=== PATIENT | female | born 1950 | race Caucasian/White ===

== ENCOUNTER 2016-06-26 10:52 | Inpatient (IN) | payer OTHER ==
--- NOTE | 2016-06-04 11:17 | PAT Medication Instructions ---
Service Date Jun 04, 2016. Current Home Medication List Hydrocodon/Acetaminophen 5MG/300MG (Vicodin (5MG/300MG)), Unknown Dose PO Q6H PRN for HEADACHE Medication Instructions For Your Scheduled Surgery - Take the following medications the morning of surgery with a sip of water OTHERWISE NOTHING TO EAT OR DRINK AFTER MIDNIGHT: Hydrocodon/Acetaminophen 5MG/300MG (Vicodin (5MG/300MG)), Unknown Dose PO Q6H PRN for HEADACHE (may take if needed up to 4 hours prior to surgery if needed) If you have any questions please call us at [phone] or [phone] or [phone]
[2016-06-04 11:49] LABS: BASO % 0.6 %; BASO ABS # 0.04 K/uL (0-0.2); COMPLETE YES; EOS % 0.7 %; HEMATOCRIT 38.6 % (37-47); LYMPH % 21.6 %; LYMPH ABS # 1.45 K/uL (1.2-3.4); MEAN CELL VOLUME 88.1 fL (80-100); MEAN CORPUSCULAR HEMOGLOBIN 30.1 pg (25-34); MEAN CORPUSCULAR HGB CONC 34.2 g/dl (32-36); MONO % 7.2 %; NEUT % 68.9 %; PLATELET COUNT 332 K/uL (130-400); RED BLOOD COUNT 4.38 M/uL (4.2-5.4); WHITE BLOOD COUNT 6.71 K/uL (4.8-10.8)
--- NOTE | 2016-06-04 11:53 | DIAGNOSTIC IMAGING REPORT ---
CHEST PREADMISSION(PA/LAT) CLINICAL HISTORY: PAT preoperative evaluation COMPARISON STUDY: No previous studies for comparison. FINDINGS: The bones soft tissues and hemidiaphragms are normal. The cardiomediastinal silhouette is normal. The lungs are clear. The pulmonary vasculature is normal. IMPRESSION: Negative chest. Electronically signed by: Woo Casillas M.D. 06/04/2016 11:51 AM Dictated Date/Time: 06/04/2016 11:51 AM
[2016-06-04 12:00] LABS: URINE APPEARANCE CLEAR (CLEAR); URINE BILIRUBIN NEG (NEG); URINE COLOR YELLOW; URINE NITRITE NEG (NEG); URINE SPECIFIC GRAVITY 1.008 (1.000-1.030); UROBILINOGEN NEG (NEG)
[2016-06-04 12:06] LABS: BUN/CREATININE RATIO 14.6 (10-20); CALCIUM 9.5 mg/dl (8.5-10.1); CREATININE 0.81 mg/dl (0.60-1.20); POTASSIUM 4.2 mmol/L (3.5-5.1)
[2016-06-04 12:16] LABS: MANUAL MICROSCOPIC REQUIRED? NO; REVIEW REQ? NO
[2016-06-04 13:10] LABS: ESTIMATED AVERAGE GLUCOSE 117 mg/dl; HA1C FLAG Normal (Normal)
--- NOTE | 2016-06-25 12:21 | HISTORY & PHYSICAL EXAMINATION ---
DATE OF ADMISSION: 06/26/2016 CHIEF COMPLAINT: Left knee pain. HISTORY OF PRESENT ILLNESS: The patient is a 66-year-old female with known osteoarthritis about her bilateral knees, left worse than right. She has an old history of a femoral fracture and femoral malunion. She has severe degenerative changes on x-ray. She has severe pain and disability with activities of daily living and now desires to proceed with left total knee arthroplasty. PAST MEDICAL HISTORY: Denies. PAST SURGICAL HISTORY: None. MEDICATIONS: None. ALLERGIES: No known drug allergies. SOCIAL HISTORY AND REVIEW OF SYSTEMS: Noncontributory. PHYSICAL EXAMINATION: GENERAL: Well-nourished, well-developed female who appears her stated age. HEENT: Normocephalic, atraumatic, extraocular movements intact, oropharynx pink and moist. NECK: Supple without adenopathy. LUNGS: Clear to auscultation bilaterally. HEART: Regular rate and rhythm. ABDOMEN: Soft, nontender, nondistended. EXTREMITIES: The upper extremity is within normal limits. The left knee has varus alignment. She complains primarily of medial compartment pain. X-RAYS: X-rays were reviewed. She has gawk-dw-towl arthritis of the medial compartment with complete loss of the joint space. There are large medial osteophytes. On the lateral view, there is obvious deformity and malunion of the distal femoral shaft. There is moderate degenerative change about the patellofemoral joint as well. ASSESSMENT: Left knee degenerative joint disease. PLAN: Risks versus benefits were discussed, consent was obtained. Due to her femoral malunion, we will request the [employer] for her distal femoral alignment. Will proceed with left total knee arthroplasty as indicated.
[~2016-06-26] VITALS: Ht 152.4 cm; Wt 48.2 kg
[2016-06-26] VITALS (7 sets, daily range): BP systolic 117–152; BP diastolic 62–89; PULSE 63–82; TEMP 36.3–36.7; O2SAT 96–98; Ht 152.4 cm; Wt 48.2 kg
[~2016-06-26 10:52] MED LIST: ACETAMINOPHEN 500 MG TAB PO SCH; BUPIVACAINE 0.5 % 5 MG/1 ML PF 10ML VIAL ONE; CEFAZOLIN 2000 MG/60 ML D5W 60 ML IV SCH; CeleBREX 200 MG CAP PO SCH; DEXAMETHASONE 4 MG TAB PO SCH; GABAPENTIN 300 MG CAP PO SCH; HYDR-3419 PO; LACTATED RINGER'S 1000ML 1,000 ML IV SCH; LACTATED RINGER'S 1000ML 500 ML IV ONE; LACTATED RINGER'S 1000ML IV SCH; LACTATED RINGER'S 500 ML IV SCH; METOCLOPRAMIDE HCL 10 MG TAB PO SCH; MISSING PHYSICIAN SIGNATURE ON ORDER SCH; ROPIVACAINE 5MG/ML 30 ML 100 MG, METHYLPREDNISOLONE IV 40 MG, MoRPHine SULFATE 4 MG, Ep... INFIL SCH; ROPIVACAINE 5MG/ML 30 ML 150 MG, BUPIVACAINE/EPINEPHR 0.5% MPF 30 ML, KETOROLAC TROMETH... INFIL SCH
--- NOTE | 2016-06-26 10:59 | History & Physical Bridge Note ---
H&P Re-Evaluation Bridge Note: I have examined the patient, reviewed the History & Physical and in the interval since the performance of the History & Physical I have noted the following changes of clinical significance: No changes noted
[2016-06-26] MEDS ORDERED: ONDANSETRON INJ 2 MG/ML 2 ML VIAL IV PRN ×2 (11:15→15:45)
[2016-06-26] MEDS ORDERED: FENTANYL CITRATE INJ 50 MCG/1 ML 2 ML VIAL IV PRN (11:15)
[2016-06-26] MEDS ORDERED: ATROPINE SULFATE 0.1 MG/ML 5ML SYR IV PRN (11:15)
[2016-06-26] MEDS ORDERED: EpHEDrine SULFATE INJ 50 MG/ML AMP IV PRN (11:15)
[2016-06-26] MEDS ORDERED: PROPOFOL IV EMULSION 10 MG/ML 20 ML VIAL IV ONE (12:12)
[2016-06-26] MEDS ORDERED: LIDOCAINE HCL 2% 2 ML VIAL (20MG/ML) ONE (12:12)
[2016-06-26] MEDS ORDERED: DEXAMETHASONE SOD INJ 4 MG/ML VIAL ONE (12:12)
[2016-06-26] MEDS ORDERED: FENTANYL CITRATE INJ 50 MCG/1 ML 2 ML VIAL ONE (12:12)
[2016-06-26] MEDS ORDERED: ONDANSETRON INJ 2 MG/ML 2 ML VIAL ONE (12:12)
[2016-06-26] MEDS ORDERED: MIDAZOLAM HCL 1 MG/ML 2ML VIAL ONE (12:12)
[2016-06-26] MEDS ORDERED: ORTHO JOINT ANESTHETIC ONE (13:26)
[2016-06-26] MEDS ORDERED: POVIDONE-IODINE OP SOLN 30 ML BTL ONE (13:26)
[2016-06-26] MEDS ORDERED: BACITRACIN 50000 UNIT VIAL ONE (13:26)
--- NOTE | 2016-06-26 15:35 | OPERATIVE REPORT ---
DATE OF OPERATION: 06/26/2016 ADDENDUM This procedure was made exceptionally difficulty both because of the previous femoral fracture and the unusual wear pattern of the patient's femur. I attest to the content of the Intraoperative Record and any orders documented therein. Any exceptions are noted below. ABEBED
[2016-06-26] MEDS ORDERED: MoRPHine SULFATE 2 MG/ML CARP IV PRN ×3 (15:45→16:15)
[2016-06-26] MEDS ORDERED: OXYCODONE HCL IR 5 MG TAB (IMMEDIATE RELEASE) PO PRN (15:45)
[2016-06-26] MEDS ORDERED: METOCLOPRAMIDE HCL INJ 5 MG/ML 2 ML VIAL IV PRN (15:45)
[2016-06-26] MEDS ORDERED: ZOLPIDEM TARTRATE 5 MG TAB PO PRN (15:45)
[2016-06-26] MEDS ORDERED: ALUMINUM/MAGNESIUM/SIMETH (MAALOX MAX) 30 ML UDC PO PRN (15:45)
[2016-06-26] MEDS ORDERED: MAGNESIUM HYDROXIDE SUSP 30 ML UDC PO PRN (15:45)
--- NOTE | 2016-06-26 16:07 | DIAGNOSTIC IMAGING REPORT ---
LEFT KNEE 1 OR 2 VIEWS ROUTINE CLINICAL HISTORY: Left knee degenerative joint disease. Arthroplasty. COMPARISON: None FINDINGS: Alignment of the total left knee arthroplasty is anatomic. There is no fracture or unexpected radiopaque foreign body. A healed fracture of the mid to distal shaft of the left femur is partially imaged. IMPRESSION: Expected findings following total left knee arthroplasty. Electronically signed by: Ky Faith M.D. 06/26/2016 4:06 PM Dictated Date/Time: 06/26/2016 4:05 PM
[2016-06-26] MEDS ORDERED: MoRPHine SULFATE 4 MG/ML 1 ML CARP\\VIAL IV PRN ×2 (16:15)
[2016-06-26] MEDS ORDERED: MoRPHine SULFATE 10 MG/ML CARP/VIAL IV PRN ×2 (16:15)
--- NOTE | 2016-06-26 16:19 | Anesthesiology Progress Note ---
Anesthesia Post Op Note Date & Time Jun 26, 2016 at 16:20 Vital Signs Pain Intensity: 0 Vital Signs Past 12 Hours Date Time Temp Pulse Resp B/P Pulse Ox O2 Delivery O2 Flow Rate FiO2 06/26/16 16:10 70 12 121/73 100 Nasal Cannula 2 06/26/16 16:00 65 12 123/76 99 Nasal Cannula 2 06/26/16 15:50 62 12 100/73 100 Mask 10 06/26/16 15:41 36.5 72 12 118/75 96 Mask 10 06/26/16 11:15 36.7 77 18 152/89 98 Room Air Notes Mental Status: alert / awake / arousable, participated in evaluation Pt Amnestic to Procedure: Yes Nausea / Vomiting: adequately controlled Pain: adequately controlled Airway Patency, RR, SpO2: stable & adequate BP & HR: stable & adequate Hydration State: stable & adequate Anesthetic Complications: no major complications apparent
--- NOTE | 2016-06-26 17:20 | OPERATIVE REPORT ---
DATE OF OPERATION: 06/26/2016 PREOPERATIVE DIAGNOSIS: Osteoarthritis left knee with malunited femoral shaft fracture. POSTOPERATIVE DIAGNOSIS: Osteoarthritis left knee with malunited femoral shaft fracture. PROCEDURE: OrthAlign navigation left total knee. SURGEON: Gurmeet Alva MD EMBOSSING MACHINE OPERATOR HELPER: Tavo Corey PA-C ANESTHESIA: Spinal. COMPLICATIONS: None. DESCRIPTION OF PROCEDURE: Following induction of adequate spinal anesthesia, the patient's left leg was prepped and draped in usual sterile manner. The limb was exsanguinated with an Esmarch bandage and tourniquet was inflated to 300 mmHg. A longitudinal incision was made. Subcutaneous tissue was sharply dissected. Electrocautery was used for hemostasis. Median parapatellar incision was made and the patella was then everted and the knee was flexed. Severe wear and eburnation of the medial femoral condyle was noted. First, the dorsal line alignment guide was used to place the proximal tibial cutting guide. This cut was made and the bone fragment was removed. Next, attention was turned to the distal femur where a pin was placed anterior to the intercondylar notch. This was used to place the OrthAlign navigation guide and once it was calibrated successfully, the distal femoral cut was made. Severe wear of the medial condyle was noted. The OrthAlign guide was removed and the tibia was sized, slight elevation of the posterior paddle on the medial femoral condyle to make up for some of the loss bone was utilized and the #3 distal femoral guide was placed into position. The femoral cuts were made, the notch was prepared, and meniscal remnants were removed. Attention was turned to the tibia once again where the tibia was repaired using a size 2 tibial base plate. A trial reduction was carried out and was found to be significant excess external rotation of the femoral component, the knee was stable in extension but was tight laterally in flexion, and far too lax medially in flexion. After careful inspection of the epicondylar axis, it appeared that the internal rotation that I dialed in to make up for posterior condyle, medial femoral condyle, and bone loss was not adequate. Using epicondylar axis, the femoral component appeared to be a few degrees externally rotated. The only option available at that point will be to downsize the tibia to a size 2 and recut in external rotation. This was performed. The trial 2 femoral component was placed and TS tibial poly trial was placed and this completely eliminated the previous flexion gap medially that was noted with the previously placed component. The decision was made to place pegs on the femur and a 50 mm intramedullary didi on the tibia for increased stability. Because of slightly increased constraint of the TS, polyethylene was chosen and sized to be used. All trial components were removed after preparation of the patella and tracking of the patella and the joint mix was injected posteriorly and pericapsularly. The knee was thoroughly irrigated with pulsatile irrigation. The final components were assembled and bone ends were dried and the femoral component was impacted into position. A blunt Sharon was used to bring the tibia into view and the tibia was cemented into position and 11 mm TS poly was placed. The reinforcing pin was placed in the tibial post. The knee was located and was again found to be stable and the patella was cemented into position. All excess cement was removed. The knee was thoroughly irrigated once again. A Hemovac drain was placed and a sterile dressing of Adaptic, 4 x 4s, sterile Webril and double length Rommel was applied. The patient tolerated the procedure well. I attest to the content of the Intraoperative Record and any orders documented therein. Any exceptio ns are noted below.
[2016-06-26] MEDS: KETOROLAC TROMETHAMINE 15 MG/ML VIAL IV. SCH (19:33)
[2016-06-26] MEDS ORDERED: PNEUMOCOCCAL POLYSACCHARIDES 25 MCG/0.5 ML VIAL/SYR IM. ONE (19:45)
[2016-06-26] MEDS ORDERED: PNEUMOCOCCAL ADMINISTRATION CHARGE ONE (19:45)
[2016-06-26] MEDS: D5W AND 1/2NSS + 20MEQ KCL 1,000 ML IV SCH (20:16)
[2016-06-26] MEDS: ASPIRIN 81 MG ECTAB PO SCH (20:18)
[2016-06-26] MEDS: DOCUSATE SODIUM 100 MG CAP PO SCH (20:18)
[2016-06-26] MEDS: CEFAZOLIN IV 1,000 MG in DEXTROSE 5% 50ML 50 ML IV SCH (21:38)
[2016-06-26] MEDS: ACETAMINOPHEN 500 MG TAB PO SCH (21:39)
[2016-06-27] VITALS (7 sets, daily range): BP systolic 101–169; BP diastolic 52–75; PULSE 62–94; TEMP 36.3–36.6; O2SAT 95–97
[2016-06-27] MEDS: KETOROLAC TROMETHAMINE 15 MG/ML VIAL IV. SCH ×3 (01:45→13:55)
[2016-06-27] MEDS: CEFAZOLIN IV 1,000 MG in DEXTROSE 5% 50ML 50 ML IV SCH (05:36)
[2016-06-27] MEDS: D5W AND 1/2NSS + 20MEQ KCL 1,000 ML IV SCH ×2 (05:36→15:00)
[2016-06-27] MEDS: ACETAMINOPHEN 500 MG TAB PO SCH ×3 (05:37→20:04)
[2016-06-27 07:29] LABS: MEAN CORPUSCULAR HEMOGLOBIN 28.9 pg (25-34); MEAN CORPUSCULAR HGB CONC 32.8 g/dl (32-36); MEAN PLATELET VOLUME 9.7 fL (7.4-10.4); PLATELET COUNT 193 K/uL (130-400); RED BLOOD COUNT 2.84 M/uL (4.2-5.4)
[2016-06-27] MEDS ORDERED: DEXAMETHASONE INJ 10 MG in SYRINGE 0 ML IV SCH (07:30)
--- NOTE | 2016-06-27 07:43 | Orthopedic Progress Note ---
Orthopedic Progress Note Date of Service Jun 27, 2016. Subjective Post OP Day: 1 Reports: complaints ("I can't move my foot"), Denies: SOB, calf pain, chest pain , light headedness, nausea / vomiting Additional Notes: Pt states that she is unable to move her foot this AM. "The leg feels numb". No other complaints at this time. Objective calves soft nontender, capillary refill less than 2 sec., dressing C/D/I, A&O x3 Unable to dorsi/plantar flex the foot at this time. Able to wiggle her toes slightly. Thigh has good sensation. Sensation decreased at the distal femur down to the foot. Date Time Temp Pulse Resp B/P Pulse Ox O2 Delivery O2 Flow Rate FiO2 06/27/16 03:51 36.5 71 16 101/52 96 Room Air 06/27/16 00:05 36.6 73 16 122/60 95 Room Air 06/27/16 00:00 Room Air 06/26/16 20:15 96 Room Air 06/26/16 20:08 36.3 73 18 137/76 98 Nasal Cannula 2.0 06/26/16 18:45 36.3 63 18 117/72 98 Nasal Cannula 2.0 06/26/16 17:45 36.5 82 16 127/62 98 Nasal Cannula 2.0 06/26/16 17:15 36.5 75 18 122/70 97 Nasal Cannula 06/26/16 16:45 98 Nasal Cannula 2.0 06/26/16 16:45 36.5 82 16 127/62 98 Nasal Cannula 2.0 06/26/16 16:45 98 Nasal Cannula 2.0 06/26/16 16:20 37.4 75 12 125/67 97 Nasal Cannula 2 06/26/16 16:10 70 12 121/73 100 Nasal Cannula 2 06/26/16 16:00 65 12 123/76 99 Nasal Cannula 2 06/26/16 15:50 62 12 100/73 100 Mask 10 06/26/16 15:41 36.5 72 12 118/75 96 Mask 10 06/26/16 11:15 36.7 77 18 152/89 98 Room Air Laboratory Results 24 Hours: Test 06/27/16 07:03 Assessment & Plan Assessment: POD 1 s/p Left TKA with foot drop. Labs pending Plan: PT/OT Planning on home tomorrow Follow foot drop for now. Likely due to intraoperative injection. Inhouse Planning Pain Management: Celebrex, Morphine, PO Tylenol, Oxy IR DVT Prophylaxis: TEDs, SCDs, ASA Discharge Planning Discharge Planning: home with oppt
[2016-06-27 08:10] LABS: BUN/CREATININE RATIO 21.3 (10-20); CREATININE 0.95 mg/dl (0.60-1.20); POTASSIUM 4.5 mmol/L (3.5-5.1)
[2016-06-27] MEDS: ASPIRIN 81 MG ECTAB PO SCH ×2 (08:57→20:03)
[2016-06-27] MEDS: DOCUSATE SODIUM 100 MG CAP PO SCH ×2 (08:58→20:03)
[2016-06-27] MEDS: MULTIVITAMIN TAB PO SCH (08:58)
[2016-06-27] MEDS: PANTOprazole SOD 40 MG TAB PO SCH (08:58)
[2016-06-27] MEDS: FERROUS GLUCONATE 324 MG TAB PO SCH ×3 (08:59→18:41)
[2016-06-27] MEDS ORDERED: CeleBREX 200 MG CAP PO SCH (21:00)
[2016-06-28 00:14] VITALS: BP 148/77; PULSE 77; TEMP 36.8; O2SAT 97
[2016-06-28] MEDS: ACETAMINOPHEN 500 MG TAB PO SCH (06:10)
[2016-06-28] MEDS: PANTOprazole SOD 40 MG TAB PO SCH (07:43)
[2016-06-28] MEDS: DOCUSATE SODIUM 100 MG CAP PO SCH (07:43)
[2016-06-28] MEDS: ASPIRIN 81 MG ECTAB PO SCH (07:43)
[2016-06-28] MEDS: MULTIVITAMIN TAB PO SCH (07:43)
[2016-06-28] MEDS: FERROUS GLUCONATE 324 MG TAB PO SCH (07:43)
[2016-06-28 07:51] VITALS: BP 112/62; PULSE 66; TEMP 36.6; O2SAT 95
--- NOTE | 2016-06-28 09:17 | Orthopedic Progress Note ---
Orthopedic Progress Note Date of Service Jun 28, 2016. Subjective Post OP Day: 2 Reports: feeling well, pain controlled w PO medications, Denies: SOB, calf pain , chest pain, complaints, light headedness, nausea / vomiting Objective calves soft nontender, N/V intact, capillary refill less than 2 sec., dressing C /D/I (silverlon intact), A&O x3, toes mobile foot drop improved Date Time Temp Pulse Resp B/P Pulse Ox O2 Delivery O2 Flow Rate FiO2 06/28/16 07:51 36.6 66 18 112/62 95 Room Air 06/28/16 01:20 Room Air 06/28/16 00:14 36.8 77 18 148/77 97 Room Air 06/27/16 16:00 97 Room Air 06/27/16 15:02 36.3 94 18 169/75 97 Room Air 06/27/16 11:38 36.5 72 17 102/70 95 Room Air Assessment & Plan Assessment: POD 2 s/p Left TKA with foot drop, has resolved. Plan: PT/OT foot drop improved will check w/ SS for poss rehab today. stable to transfer if improved Discharge Planning Discharge Planning: rehab hospital
[2016-06-28] MEDS ORDERED: ACET-1138 PO (09:20)
[2016-06-28] MEDS ORDERED: RXC5 PO (09:20)
[2016-06-28] MEDS ORDERED: CLB200 PO (09:20)
[2016-06-28] MEDS ORDERED: ONDA8TAB6 PO (09:20)
[2016-06-28] MEDS ORDERED: ASPEC81 PO (09:20)
--- NOTE | 2016-06-28 09:23 | Discharge Instructions ---
Discharge Instructions Admission Reason for Admission: Left Knee Degenerative Joint Disease Discharge Discharge Diagnosis / Problem: s/p Left TKA Discharge Goals Goal(s): Decrease discomfort, Improve function, Increase independence Activity Recommendations Activity Level: Up Ad Ayah Therapies: Physical Therapy (TKA protocol) Weightbearing Status: Left weightbearing (as tolerated) . Additional Information Patient informed of condition: Yes Advance Directives: No DNR: No Level of Care: Acute Rehab Communicable Disease: No Prognosis: Stable [place] Catheter: No Instructions / Follow-Up Instructions / Follow-Up ACTIVITY RECOMMENDATIONS: SELF CARE INSTRUCTIONS AFTER TOTAL KNEE REPLACEMENT A. You may need to continue a physical therapy program after discharge from the hospital. There are several options available to you. Your doctor will assist you in selecting the best one for you. 1. An out-patient facility 2 to 3 times a week for therapy or home therapy. 2. Continue working on all exercises taught to you in the hospital. Your goals should be to increase bending of your knee to 90 degrees and beyond and to fully straighten your knee. B. You may progress at your own pace from walking with a walker or crutches to a cane; then to no assistive devices. C. Make walking a part of your daily routine. Be up as much as comfortable with rest periods throughout the day. Rest with leg elevation is very important. Use the ice wrap frequently for the first 3-4 weeks. D. There are no restrictions on activities. You may ride in a car, shop, participate in plant electrical engineer and all social activities. E. Wear the long elastic stockings (JOSE JUAN hose) 20 hours a day for 2 weeks after surgery. They can be removed several times a day for laundering and for a bath. F. You may shower, no tub baths until cleared by your doctor. SPECIAL CARE INSTRUCTIONS: VERY IMPORTANT TO READ AND REVIEW A. There are a few signs you need to watch for after you are home. Call [facility] if you notice any of the followin. Increased severe knee pain. Some pain is expected especially when you exercise. 2. Increased swelling in your leg or knee; pain or swelling of the calf muscle in either lower leg. 3. Any fluid drainage from the incision. 4. Shortness of breath or chest pain. B. Please call [facility] at if you have any concerns or questions about your operation or recovery. The doctor or his nurse will return your call promptly. C. You must take antibiotics before dental work, bladder, bowel or other surgery. Your doctor will provide you with a permanent care to carry describing this precaution. IMPORTANT: * REMEMBER TO TAKE ASPIRIN, 81 MG, TWICE DAILY FOR 4 WEEKS UNLESS OTHERWISE DIRECTED. THIS IS YOUR BLOOD THINNER. * HIGH RISK PATIENTS MAY BE PRESCRIBED A STRONGER BLOOD THINNER. THIS WILL BE PROVIDED AT DISCHARGE. * CALL IF INCREASED PAIN, REDNESS, DRAINAGE OR FEVER GREATER THAT 101. * WEAR JOSE JUAN HOSE 20 HOURS PER DAY FOR 2 WEEKS. * YOU MAY HAVE A LARGE BAND-AID LIKE DRESSING (SILVERON). THIS WILL REMAIN ON YOUR INCISION FOR 7 DAYS, THEN CAN BE REMOVED. IF INCISION IS LEAKING THROUGH DRESSING, CALL THE OFFICE . FOLLOW UP VISIT: If appointment is not already scheduled: Please call [facility] to make a follow-up appointment for 2 weeks after your surgery at . Current Hospital Diet Patient's current hospital diet: Regular Diet Discharge Diet Recommended Diet: Regular Diet Procedures Procedures Performed: Left Total Knee Arthroplasty, Computer Navigation Pending Studies Studies pending at discharge: no Physician Orders On Transfer Dressing Changes: Silverlon- This is a large adhesive bandage that contains silver ions. This helps your incision heal by fighting off bacteria and protecting it from the outside environment. You are permitted to shower with this dressing. This will remain on your incision for 7 days and then should be removed. Some visible blood or drainage through the dressing window is normal. If there is significant drainage or leaking noted before the 7 days notify your doctor's office immediately. Once removed, keep incision clean and dry. If there is any drainage or redness noted, please call your surgeon. Laboratory Results Hemoglobin A1c Test 06/04/16 11:23 Range/Units Estimated Average Glucose 117 mg/dl Hemoglobin A1c 5.7 H 4.5-5.6 % Medical Emergencies . Who to Call and When: Medical Emergencies: If at any time you feel your situation is an emergency, please call 911 immediately. . Non-Emergent Contact Non-Emergency issues call your: Primary Care Provider, Surgeon . . "Provider Documentation" section prepared by Woo Krause. Core Measure Problem Core Measures: None [place] Drug Monitoring Program Search Results: patient reviewed within database, no issues identified
[2016-06-28 09:27] VITALS: O2SAT 95
[2016-06-28 10:42] VITALS: BP 112/62; PULSE 66; TEMP 36.6; O2SAT 95
[2016-06-28 12:11] VITALS: BP 132/68; PULSE 80; TEMP 36.8; O2SAT 97
--- NOTE | 2016-07-04 10:43 | EDITING REQUIRED CODING QUERY ---
SUPPORTING DIAGNOSIS NEEDED A supporting diagnosis is required for the test/procedure performed on this patient in order for us to be reimbursed by ([employer]). Please provide a supporting diagnosis for the following tests listed below next to the test name along with your signature. *If there is no additional diagnosis for this patient that would support the following test/procedure please document that below next to the test/procedure. Tests that require a supporting diagnosis: DOS 06/04/16 * Hba1c DIAGNOSIS: * PTINR DIAGNOSIS: * Urine Culture DIAGNOSIS: Providers Signature: Thank you Pamela Harrison
--- NOTE | 2016-07-09 13:34 | DISCHARGE SUMMARY ---
CHIEF COMPLAINT: Left knee pain. Please see complete history and physical examination. HOSPITAL COURSE: The patient underwent left total knee arthroplasty without complication. She tolerated the procedure well and was discharged to recovery room in stable condition. Her postoperative course was relatively uneventful. Her postoperative pain was reasonably well controlled with a combination of spinal anesthesia, adductor canal block, intraoperative joint injection, IV, and oral pain medications. She was started on aspirin for DVT prophylaxis. She also utilized JOSE JUAN stockings and SCDs for additional prophylaxis. Her H\T\H was stable and did not require transfusion. Her surgical drain was discontinued by postoperative day 2. Her surgical dressing will remain in place for approximately 7 days postoperative. She did have mild postoperative foot drop on postoperative day 1, which was attributed to the intraoperative joint injection. This was substantially improved and resolved by postoperative day 2. She tolerated postop physical therapy reasonably well where she was bending her knee and ambulating appropriately. She was discharged to [facility] on postoperative day 2. She will continue her physical therapy there. She will continue her aspirin for DVT prophylaxis and follow up in our office in approximately 10-14 days for initial postop evaluation.
== END 2016-06-28 12:42 | DRG 470 ==
LOC: ENRESERVDT → ENRESERVTM → C.ACU 10:52 → C.MSN 15:42
PROC: 0SRD0J9 Replacement of Left Knee Joint with Synthetic Substitute, Cemented, Open Approach (ICD-10-PCS; principal; 2016-06-26 13:15)
DX: M17.0 Bilateral primary osteoarthritis of knee (principal); M84.65 Pathological fracture in other disease, pelvis and femur